=== PATIENT | male | born 1945 | race Caucasian/White ===

== ENCOUNTER 2017-01-10 09:18 | Outpatient (CLI) | payer MEDICARE, OTHER | END 2017-01-10 09:19 | disposition home or self-care (01) | DX: I10 Essential (primary) hypertension (principal); E11.9 Type 2 diabetes mellitus without complications; E78.5 Hyperlipidemia, unspecified ==

== ENCOUNTER 2017-02-20 09:56 | Outpatient (CLI) | payer MEDICARE, OTHER | END 2017-02-20 09:57 | disposition home or self-care (01) | DX: G47.33 Obstructive sleep apnea (adult) (pediatric) (principal) | CPT/HCPCS: 99214; G0463 ==

== ENCOUNTER 2017-04-30 09:30 | Outpatient (CLI) | payer MEDICARE, OTHER ==
[2017-04-30 18:14] LABS: BASOPHILS % (AUTO) 0.7 %; EOSINOPHILS # (AUTO) 0.3 10^3/uL (0.0-0.7); EOSINOPHILS % (AUTO) 6.5 %; HCT - HEMATOCRIT 39.6 % (42.0-52.0); HGB - HEMOGLOBIN 13.4 g/dL (14.0-18.0); MEAN CORPUSCULAR HEMOGLOBIN 31.1 pg (27.0-31.0); MEAN CORPUSCULAR HGB CONC 33.9 g/dL (32.0-36.0); MEAN CORPUSCULAR VOLUME 91.6 fL (80.0-94.0); MEAN PLATELET VOLUME 8.4 fL (7.4-11.4); MONOCYTES # (AUTO) 0.4 10^3/uL (0.0-1.0); MONOCYTES % (AUTO) 8.2 %; NEUTROPHILS # (AUTO) 2.4 10^3/uL (1.5-6.6); NEUTROPHILS % (AUTO) 46.6 %; RED BLOOD COUNT 4.32 10^6/uL (4.70-6.10); RED CELL DISTRIBUTION WIDTH 13.3 % (12.0-15.0); UNCORRECTED WHITE BLOOD COUNT 5.2 x10^3/uL; WHITE BLOOD COUNT 5.2 x10^3/uL (4.8-10.8)
[2017-04-30 18:36] LABS: HEMOGLOBIN A1C 0.64 g/dL
[2017-04-30 18:42] LABS: ALBUMIN/GLOBULIN RATIO 1.4 (1.0-2.2); BILIRUBIN,TOTAL 0.5 mg/dL (0.2-1.0); BUN - BLOOD UREA NITROGEN 22 mg/dL (6-20); CALCIUM 9.3 mg/dL (8.5-10.3); CARBON DIOXIDE - CO2 25 mmol/L (21-32); CHLORIDE 105 mmol/L (101-111); CHOL/HDL RATIO 2.8 (<5.0); CHOLESTEROL 107 mg/dL; CREATININE 0.9 mg/dL (0.6-1.2); GFR - MDRD 83 (>89); GLUCOSE 134 mg/dL (70-100); HDL CHOLESTEROL 38 mg/dL; IRON 77 ug/dL (45-182); POTASSIUM 4.2 mmol/L (3.5-5.0); SODIUM 139 mmol/L (135-145); TOTAL IRON BINDING CAPACITY 386 ug/dL (250-450); TOTAL PROTEIN 7.3 g/dL (6.7-8.2); TRANSFERRIN 276 mg/dL (180-329)
[2017-04-30 19:04] LABS: LDL/HDL RATIO 1.2 (<3.6); TRIGLYCERIDES 109 mg/dL; VLDL CHOLESTEROL 22 mg/dL
== END 2017-04-30 09:31 | disposition home or self-care (01) ==
LOC: LAB.F 09:30
PROVIDERS: ATTEND Internal Medicine
DX: E11.9 Type 2 diabetes mellitus without complications (principal); I10 Essential (primary) hypertension; E78.5 Hyperlipidemia, unspecified; D64.9 Anemia, unspecified
CPT/HCPCS: 36415; 80048; 80053; 80061; 82728; 83036; 83540; 84466; 85025

== ENCOUNTER 2017-05-31 10:01 | Outpatient (CLI) | payer MEDICARE, OTHER ==
--- NOTE | 2017-05-31 16:20 | XRAY Report ---
THREE-VIEW LUMBAR SPINE: 05/31/2017 CLINICAL INDICATION: Back pain. FINDINGS: AP, lateral, coned-down views of the lumbar spine demonstrate moderate degenerative disk a nd facet disease. There is no evidence of compression fracture or subluxation. IMPRESSION: MODERATE DEGENERATIVE CHANGES. JOB #: [id number] EXT JOB #:[id number]
--- NOTE | 2017-05-31 16:21 | XRAY Report ---
FRONTAL PELVIS: 05/31/2017 CLINICAL INDICATION: Pain, rheumatoid factor positive. FINDINGS: Frontal view of the hips and pelvis demonstrate mild right and moderate left hip osteoarth ritis. There is no evidence of acute fracture or dislocation. The visualized bowel gas pattern is n ormal. IMPRESSION: MODERATE LEFT AND MILD RIGHT HIP OSTEOARTHRITIS. JOB #: [id number] EXT JOB #:[id number]
--- NOTE | 2017-05-31 16:22 | XRAY Report ---
TWO-VIEW BILATERAL KNEES: 05/31/2017 CLINICAL INDICATION: Pain, rheumatoid factor positive. FINDINGS: Frontal and lateral views of the bilateral knees demonstrate mild bilateral osteoarthritis . There is no evidence of acute fracture or dislocation. No effusion is present. IMPRESSION: MILD BILATERAL OSTEOARTHRITIS. JOB #: [id number] EXT JOB #:[id number]
== END 2017-05-31 10:02 | disposition home or self-care (01) ==
LOC: LAB 10:01
PROVIDERS: ATTEND Nurse Practitioner
DX: M16.0 Bilateral primary osteoarthritis of hip (principal); M17.0 Bilateral primary osteoarthritis of knee; M51.36 Other intervertebral disc degeneration, lumbar region
CPT/HCPCS: 36415; 72100; 72170; 73565; 82550

== ENCOUNTER 2017-12-06 09:06 | Outpatient (CLI) | payer MEDICARE, OTHER ==
[2017-12-06 18:20] LABS: HEMOGLOBIN A1C 0.67 g/dL; HEMOGLOBIN A1C % 6.2 % (4.6-6.2)
[2017-12-06 18:24] LABS: CHOL/HDL RATIO 3.9 (<5.0); CHOLESTEROL 194 mg/dL; CK- CREATINE KINASE 340 IU/L (22-269); HDL CHOLESTEROL 50 mg/dL; LDL CHOLESTEROL,CALCULATED 96 mg/dL; LDL/HDL RATIO 1.9 (<3.6); VLDL CHOLESTEROL 48 mg/dL
== END 2017-12-06 09:07 | disposition home or self-care (01) ==
LOC: LAB.F 09:06
PROVIDERS: ATTEND Physician Assistant Medical
DX: E78.00 Pure hypercholesterolemia, unspecified (principal); E11.9 Type 2 diabetes mellitus without complications; Z88.9 Allergy status to unspecified drugs, medicaments and biological substances
CPT/HCPCS: 36415; 80061; 82550; 83036; 83721

== ENCOUNTER 2018-03-06 10:43 | Outpatient (CLI) | payer MEDICARE, OTHER | END 2018-03-06 10:44 | disposition home or self-care (01) | LOC: SC 10:43 | PROVIDERS: ATTEND Nurse Practitioner Family | DX: G47.33 Obstructive sleep apnea (adult) (pediatric) (principal) | CPT/HCPCS: 99213; G0463; 99212 ==

== ENCOUNTER 2019-03-10 13:19 | Outpatient (CLI) | payer MEDICARE, OTHER | END 2019-03-10 13:20 | disposition home or self-care (01) | LOC: SC 13:19 | PROVIDERS: ATTEND Nurse Practitioner Family | DX: G47.33 Obstructive sleep apnea (adult) (pediatric) (principal) | CPT/HCPCS: 99214; G0463; 99212 ==

== ENCOUNTER 2019-07-10 08:34 | Outpatient (CLI) | payer MEDICARE, OTHER ==
[2019-07-10 17:38] LABS: BUN - BLOOD UREA NITROGEN 22 mg/dL (6-20); CALCIUM 9.3 mg/dL (8.5-10.3); CARBON DIOXIDE - CO2 26 mmol/L (21-32); CHLORIDE 101 mmol/L (101-111); CHOL/HDL RATIO 2.5 (<5.0); CHOLESTEROL 130 mg/dL; GFR - MDRD 73 (>89); GLUCOSE 119 mg/dL (70-100); HDL CHOLESTEROL 53 mg/dL; LDL CHOLESTEROL,CALCULATED 53 mg/dL; SODIUM 141 mmol/L (135-145); VLDL CHOLESTEROL 24 mg/dL
[2019-07-10 17:42] LABS: HB2 TOTAL 13.4 g/dL; HEMOGLOBIN A1C 0.52 g/dL; HEMOGLOBIN A1C % 5.7 % (4.6-6.2)
[2019-07-10 17:56] LABS: CREATININE,URINE 107.4 mg/dL; MICROALBUM/CREATININE RATIO,UR 87.5 ug/mg (<30.0); MICROALBUMIN,URINE 9.4 mg/dL (0-300.0)
[2019-07-11 09:13] LABS: HEPATITIS C ANTIBODY NON-REACTIVE (NON-REACTIVE)
== END 2019-07-10 08:35 | disposition home or self-care (01) ==
LOC: LAB.S 08:34
PROVIDERS: ATTEND Internal Medicine
DX: M17.9 Osteoarthritis of knee, unspecified (principal); E11.9 Type 2 diabetes mellitus without complications; K21.9 Gastro-esophageal reflux disease without esophagitis; E78.5 Hyperlipidemia, unspecified; I10 Essential (primary) hypertension; E66.9 Obesity, unspecified; G47.33 Obstructive sleep apnea (adult) (pediatric); R80.9 Proteinuria, unspecified; L29.9 Pruritus, unspecified; Z11.59 Encounter for screening for other viral diseases
CPT/HCPCS: 36415; 80048; 80061; 82043; 82570; 83036; 83721; 86803

== ENCOUNTER 2019-08-22 09:26 | Outpatient (CLI) | payer MEDICARE, OTHER ==
[2019-08-22 18:00] LABS: CALCIUM 9.5 mg/dL (8.5-10.3)
== END 2019-08-22 09:27 | disposition home or self-care (01) ==
LOC: LAB.S 09:26
PROVIDERS: ATTEND Nurse Practitioner
DX: E11.42 Type 2 diabetes mellitus with diabetic polyneuropathy (principal)
CPT/HCPCS: 36415; 80048

== ENCOUNTER 2019-12-18 10:45 | Outpatient (CLI) | payer MEDICARE, OTHER ==
[2019-12-18 17:32] LABS: HB2 TOTAL 14.2 g/dL; HEMOGLOBIN A1C 0.64 g/dL; HEMOGLOBIN A1C % 6.3 % (4.6-6.2)
== END 2019-12-18 10:46 | disposition home or self-care (01) ==
LOC: LAB.S 10:45
PROVIDERS: ATTEND Internal Medicine
DX: M17.9 Osteoarthritis of knee, unspecified (principal); E11.9 Type 2 diabetes mellitus without complications; K21.9 Gastro-esophageal reflux disease without esophagitis; E78.5 Hyperlipidemia, unspecified; I10 Essential (primary) hypertension; E66.9 Obesity, unspecified; G47.33 Obstructive sleep apnea (adult) (pediatric); R80.9 Proteinuria, unspecified; L29.9 Pruritus, unspecified; K42.9 Umbilical hernia without obstruction or gangrene
CPT/HCPCS: 36415; 83036

== ENCOUNTER 2020-03-15 12:11 | Outpatient (CLI) | payer MEDICARE, OTHER ==
--- NOTE | 2020-03-15 12:13 | SLEEP CARE CONSULTATION ---
Information from patient questionnaire entered by Shanna Hardy. I have reviewed and concur with the information entered by Shanna Hardy. This document represents the service I personally performed and the decisions made by me, Juany Beckman, RN, MSN, FLEET ADMINISTRATOR. History of Present Illness Service Date and Time: 03/15/2020 1211 Previous diagnosis: Mild, Obstructive Sleep Apnea-Hypopnea Syndrome AHI: 12.3 (in 2014) Reason for follow up: annual (last seen 2019) Equipment type: CPAP Equipment obtained from: [facility] (getting supplies as needed / his CPAP is over 5 years old and would to update) Mask style: Full face (blue gel - Thuy?) Backup mask available: Yes (old mask ) Last cushion change: 2 weeks CPAP Compliance Data - Data Reviewed with Patient Average duration of nightly device use: 8.5 Compliance rate %: 99.4 (180 days) Current pressure setting (cmH2O): 7 Humidity settin Average residual AHI: 1.3 Average large leak: 44 min 15 sec Subjective Patient concerns: reports: other (mask leaks observed were when there was an older mask cushion. Patient is changing more frequently since then. ). denies: aerophagia, mask discomfort, air blowing in eyes, mask leak noise, condensation in mask/hose, nasal congestion, dry mouth, nose, throat, epistaxis Observed to snore while using device: No Current pressure setting perceived as: comfortable On therapy, patient: reports: sleeping better, awakening more refreshed, being more awake and alert during the day, more rested overall. denies: drowsiness while driving Initial [place] Sleepiness Scale score: 16 (in 2013) Current [place] Sleepiness Scale score: 5 Allergies and Home Medications Home medication list reviewed: No (glymperide stopped ) Review of Systems Review of systems same as previous: Yes Physical Exam Height: 5 ft 6 in Weight: 194 lb Weight change since last visit: lost 20 pounds in past year or so with increase in exercise Body Mass Index: 31.3 BMI Classification: Obese Impression and Plan 1. Obstructive Sleep Apnea-Hypopnea Syndrome, mild, with good treatment compliance and good apnea control. On CPAP therapy, the patient has better sleep quality and is more rested overall. He is pleased with benefit of CPAP therapy. His [place] Sleepiness scale has gone down from a 15 to 5. Mask leaks have started to increase again so advised to tighten his mask slightly until the cushion can be replaced. His CPAP is now over 5 years old and patient would like to update. Questions answered re new devices. Patient would like to stay with Respironics brand. I explained compliance follow up process once he receives his new CPAP. Patient has lost weight with increased exercise. Currently patients BMI is 31.3 obesity class . Obesity increases the risk of apnea, CPAP pressure requirements and overall health risks especially cardiovascular and diabetes. Thus patient is advised to continue to lose weight. The patient is not sure he will lose more weight. He follows a diabetic diet. The patient's CPAP pressure range should accommodate some weight loss. Symptoms to report for additional pressure adjustment discussed. Patient's apnea severity and rationale for treatment to reduce apnea, improve sleep quality and reduce cardiovascular and cerebrovascular events was reviewed. I also reviewed the benefit of consistent device use of CPAP for diabetes * Continue CPAP pressure at 7 cmH2O * update CPAP - Respironics preferred * Adjust mask headgear. * Notify me if snoring with mask or feeling that the pressure is too much or too little * Attempt to lose weight * Call this office if any problems using CPAP * Return for follow up in 1 month after new CPAP , or sooner if concerns arise Visit Type: Telehealth Video (to reduce the risk of Covid 19 exposure) Patient Location: Home Location of Provider: Home Patient agrees and consents to this telehealth visit type: Yes Patient agrees to have their insurance billed: Yes Time Spent with Patient (minutes): 20 Provider Statement: I spent 100% of the Telehealth Video Call with the patient with greater than 50% spent counseling the patient and coordination of care.
== END 2020-03-15 12:12 | disposition home or self-care (01) ==
LOC: SC 12:11
PROVIDERS: ATTEND Nurse Practitioner Family
DX: G47.33 Obstructive sleep apnea (adult) (pediatric) (principal); E66.9 Obesity, unspecified; Z68.31 Body mass index [BMI] 31.0-31.9, adult

== ENCOUNTER 2020-07-06 07:25 | Outpatient (CLI) | payer MEDICARE, OTHER ==
[2020-07-06 15:29] LABS: BUN - BLOOD UREA NITROGEN 24 mg/dL (6-20); CALCIUM 9.5 mg/dL (8.5-10.3); CARBON DIOXIDE - CO2 27 mmol/L (21-32); CHLORIDE 102 mmol/L (101-111); CHOL/HDL RATIO 1.9 (<5.0); CHOLESTEROL 117 mg/dL; GLUCOSE 116 mg/dL (70-100); HDL CHOLESTEROL 62 mg/dL; LDL CHOLESTEROL,CALCULATED 28 mg/dL; LDL/HDL RATIO 0.5 (<3.6); SODIUM 138 mmol/L (135-145); VLDL CHOLESTEROL 27 mg/dL
[2020-07-06 15:36] LABS: CREATININE,URINE 96.2 mg/dL; MICROALBUM/CREATININE RATIO,UR 32.2 ug/mg (<30.0); MICROALBUMIN,URINE 3.1 mg/dL (0-300.0)
[2020-07-06 21:40] LABS: HEMOGLOBIN A1c% 6.4 % (4.27-6.07)
== END 2020-07-06 07:26 | disposition home or self-care (01) ==
LOC: LAB.S 07:25
PROVIDERS: ATTEND Internal Medicine
DX: E11.9 Type 2 diabetes mellitus without complications (principal); E78.5 Hyperlipidemia, unspecified; I10 Essential (primary) hypertension; M17.9 Osteoarthritis of knee, unspecified; K21.9 Gastro-esophageal reflux disease without esophagitis; E66.9 Obesity, unspecified; G47.33 Obstructive sleep apnea (adult) (pediatric); R80.9 Proteinuria, unspecified; L29.9 Pruritus, unspecified; K42.9 Umbilical hernia without obstruction or gangrene
CPT/HCPCS: 36415; 80048; 80061; 82043; 82570; 83036; 83721

== ENCOUNTER 2020-11-23 12:40 | Outpatient (CLI) | payer MEDICARE, OTHER ==
[2020-11-23 15:39] LABS: BILIRUBIN,URINE NEGATIVE (NEGATIVE); GLUCOSE, URINE (UA) >=1000 mg/dL (NEGATIVE); KETONES,URINE (UA) NEGATIVE (NEGATIVE); LEUKOCYTE ESTERASE, URINE NEGATIVE (NEGATIVE); NITRITE,URINE NEGATIVE (NEGATIVE); OCCULT BLOOD,URINE NEGATIVE (NEGATIVE); PROTEIN,URINE NEGATIVE (NEGATIVE); UROBILINOGEN,URINE 0.2 (NORMAL) E.U./dL (NORMAL)
[2020-11-23 15:42] LABS: CLARITY,URINE CLEAR (CLEAR)
== END 2020-11-23 12:41 | disposition home or self-care (01) ==
LOC: LAB.S 12:40
PROVIDERS: ATTEND Internal Medicine
DX: R35.0 Frequency of micturition (principal)
CPT/HCPCS: 81001; 81003; 87086

== ENCOUNTER 2020-12-15 08:00 | Outpatient (CLI) | payer MEDICARE, OTHER ==
--- NOTE | 2020-12-15 13:01 | XRAY Report ---
PROCEDURE: Ankle 3 View LT INDICATIONS: LEFT ANKLE SPRAIN TECHNIQUE: 3 views of the ankle were acquired. COMPARISON: None available related to the ankle on the left. FINDINGS: Bones: No fractures or dislocations. Ankle mortise is normally aligned. No suspicious bony lesions . Soft tissues: No tibiotalar joint effusion. Achilles tendon appears normal. IMPRESSION: Prior trauma has occurred and prior fracture fixation has been performed but imaging fro m the prior trauma is not available for review. The current study shows a healed distal fibular fract ure, moderately irregular in its margination and also a axial medial malleolar fracture fixation scre w. No acute disease. Moderate-sized plantar fascial insertion spur seen on the lateral view. No defin ite superimposed acute trauma. Reviewed by: Jermaine Syed MD on 12/15/2020 12:59 PM PST Approved by: Jermaine Syed MD on 12/15/2020 12:59 PM [facility] Station ID: [id number]
== END 2020-12-15 23:59 | disposition home or self-care (01) ==
LOC: DI.S 08:00
PROVIDERS: ATTEND Emergency Medicine
DX: S93.412A Sprain of calcaneofibular ligament of left ankle, initial encounter (principal)

== ENCOUNTER 2020-12-25 11:39 | Outpatient (CLI) | payer MEDICARE, OTHER ==
[2020-12-25 15:38] LABS: CREATININE,URINE 85.9 mg/dL; MICROALBUM/CREATININE RATIO,UR 399.3 ug/mg (<30.0); MICROALBUMIN,URINE 34.3 mg/dL (0-300.0)
[2020-12-25 18:25] LABS: ESTIMATED AVERAGE GLUCOSE 143 mg/dL (70-100); HEMOGLOBIN A1c% 6.6 % (4.27-6.07)
== END 2020-12-25 11:40 | disposition home or self-care (01) ==
LOC: LAB.S 11:39
PROVIDERS: ATTEND Internal Medicine
DX: E11.9 Type 2 diabetes mellitus without complications (principal)
CPT/HCPCS: 36415; 82043; 82570; 83036

== ENCOUNTER 2021-01-13 08:07 | Outpatient (CLI) | payer MEDICARE, OTHER ==
[2021-01-13 15:55] LABS: BASOPHILS % (AUTO) 0.6 %; EOSINOPHILS # (AUTO) 0.3 10^3/uL (0.0-0.7); EOSINOPHILS % (AUTO) 6.3 %; HCT - HEMATOCRIT 41.4 % (42.0-52.0); HGB - HEMOGLOBIN 13.3 g/dL (14.0-18.0); LYMPHOCYTES # (AUTO) 1.9 10^3/uL (1.5-3.5); LYMPHOCYTES % (AUTO) 36.8 %; MEAN CORPUSCULAR HEMOGLOBIN 30.4 pg (27.0-31.0); MEAN CORPUSCULAR HGB CONC 32.1 g/dL (32.0-36.0); MEAN CORPUSCULAR VOLUME 94.5 fL (80.0-94.0); MEAN PLATELET VOLUME 9.8 fL (7.4-11.4); MONOCYTES # (AUTO) 0.5 10^3/uL (0.0-1.0); MONOCYTES % (AUTO) 10.2 %; NEUTROPHILS # (AUTO) 2.4 10^3/uL (1.5-6.6); NEUTROPHILS % (AUTO) 45.9 %; PLT - PLATELET COUNT 215 10^3/uL (130-450); RED BLOOD COUNT 4.38 10^6/uL (4.70-6.10); RED CELL DISTRIBUTION WIDTH 13.6 % (12.0-15.0); WHITE BLOOD COUNT 5.1 x10^3/uL (4.8-10.8)
[2021-01-13 16:14] LABS: ALBUMIN 4.3 g/dL (3.2-5.5); CALCIUM 9.4 mg/dL (8.5-10.3); CREATININE 0.9 mg/dL (0.6-1.2); PHOSPHORUS 3.3 mg/dL (2.5-4.6)
[2021-01-13 16:21] LABS: CREATININE,URINE 90.7 mg/dL; MICROALBUM/CREATININE RATIO,UR 239.3 ug/mg (<30.0); MICROALBUMIN,URINE 21.7 mg/dL (0-300.0)
== END 2021-01-13 08:08 | disposition home or self-care (01) ==
LOC: LAB.S 08:07
PROVIDERS: ATTEND Internal Medicine
DX: E11.21 Type 2 diabetes mellitus with diabetic nephropathy (principal)
CPT/HCPCS: 36415; 80069; 82043; 82570; 85025

== ENCOUNTER 2021-03-16 07:33 | Outpatient (CLI) | payer MEDICARE, OTHER ==
[2021-03-16 15:15] LABS: HCT - HEMATOCRIT 42.8 % (42.0-52.0); HGB - HEMOGLOBIN 13.8 g/dL (14.0-18.0); MEAN CORPUSCULAR HEMOGLOBIN 30.6 pg (27.0-31.0); MEAN CORPUSCULAR HGB CONC 32.2 g/dL (32.0-36.0); MEAN CORPUSCULAR VOLUME 94.9 fL (80.0-94.0); MEAN PLATELET VOLUME 9.7 fL (7.4-11.4); RED BLOOD COUNT 4.51 10^6/uL (4.70-6.10); RED CELL DISTRIBUTION WIDTH 13.6 % (12.0-15.0); WHITE BLOOD COUNT 5.1 x10^3/uL (4.8-10.8)
[2021-03-16 15:28] LABS: ALBUMIN 4.2 g/dL (3.2-5.5); CALCIUM 9.4 mg/dL (8.5-10.3); CREATININE 0.9 mg/dL (0.6-1.2); PHOSPHORUS 3.3 mg/dL (2.5-4.6); POTASSIUM 4.6 mmol/L (3.5-5.0); URIC ACID 5.1 mg/dL (2.6-7.2)
[2021-03-16 15:37] LABS: CREATININE,URINE 101.9 mg/dL; MICROALBUM/CREATININE RATIO,UR 165.8 ug/mg (<30.0); MICROALBUMIN,URINE 16.9 mg/dL (0-300.0)
== END 2021-03-16 07:34 | disposition home or self-care (01) ==
LOC: LAB.S 07:33
PROVIDERS: ATTEND Internal Medicine Nephrology
DX: I12.9 Hypertensive chronic kidney disease with stage 1 through stage 4 chronic kidney disease, or unspecified chronic kidney disease (principal); E11.22 Type 2 diabetes mellitus with diabetic chronic kidney disease; N18.1 Chronic kidney disease, stage 1; R80.9 Proteinuria, unspecified
CPT/HCPCS: 36415; 80069; 81599; 82043; 82570; 83883; 84550; 85027; 86334; 86335

== ENCOUNTER 2021-07-05 12:56 | Outpatient (CLI) | payer MEDICARE, OTHER ==
[2021-07-05 20:02] LABS: CREATININE,URINE 75.5 mg/dL; MICROALBUM/CREATININE RATIO,UR 135.1 ug/mg (<30.0); MICROALBUMIN,URINE 10.2 mg/dL (0-300.0)
[2021-07-05 20:07] LABS: BUN - BLOOD UREA NITROGEN 22 mg/dL (6-20); CALCIUM 9.3 mg/dL (8.5-10.3); CARBON DIOXIDE - CO2 25 mmol/L (21-32); CHLORIDE 102 mmol/L (101-111); CHOL/HDL RATIO 2.1 (<5.0); CHOLESTEROL 116 mg/dL; GFR - MDRD 73 (>89); GLUCOSE 123 mg/dL (70-100); HDL CHOLESTEROL 55 mg/dL; LDL CHOLESTEROL,CALCULATED 27 mg/dL; LDL/HDL RATIO 0.5 (<3.6); POTASSIUM 4.4 mmol/L (3.5-5.0); SODIUM 138 mmol/L (135-145); TRIGLYCERIDES 168 mg/dL; VLDL CHOLESTEROL 34 mg/dL
[2021-07-05 20:51] LABS: ESTIMATED AVERAGE GLUCOSE 134 mg/dL (70-100); HEMOGLOBIN A1c% 6.3 % (4.27-6.07)
== END 2021-07-05 12:57 | disposition home or self-care (01) ==
LOC: LAB.S 12:56
PROVIDERS: ATTEND Internal Medicine
DX: J45.909 Unspecified asthma, uncomplicated (principal); E11.21 Type 2 diabetes mellitus with diabetic nephropathy; E11.40 Type 2 diabetes mellitus with diabetic neuropathy, unspecified; K21.9 Gastro-esophageal reflux disease without esophagitis; E78.5 Hyperlipidemia, unspecified; I10 Essential (primary) hypertension; E66.9 Obesity, unspecified; G47.33 Obstructive sleep apnea (adult) (pediatric); L29.9 Pruritus, unspecified
CPT/HCPCS: 36415; 80048; 80061; 82043; 82570; 83036; 83721

== ENCOUNTER 2021-12-30 10:42 | Outpatient (CLI) | payer MEDICARE, OTHER ==
[2021-12-30 16:28] LABS: CREATININE,URINE 79.2 mg/dL; MICROALBUM/CREATININE RATIO,UR 372.5 ug/mg (<30.0); MICROALBUMIN,URINE 29.5 mg/dL (0-300.0)
[2021-12-30 20:32] LABS: ESTIMATED AVERAGE GLUCOSE 126 mg/dL (70-100)
[2021-12-30 20:41] LABS: CALCIUM 9.6 mg/dL (8.5-10.3); CREATININE 0.9 mg/dL (0.6-1.2); POTASSIUM 4.1 mmol/L (3.5-5.0)
== END 2021-12-30 10:43 | disposition home or self-care (01) ==
LOC: LAB.S 10:42
PROVIDERS: ATTEND Internal Medicine
DX: E11.9 Type 2 diabetes mellitus without complications (principal)
CPT/HCPCS: 36415; 80048; 82043; 82570; 83036

== ENCOUNTER 2022-01-24 10:56 | Outpatient (CLI) | payer MEDICARE, OTHER ==
--- NOTE | 2022-01-24 11:39 | SLEEP CARE CONSULTATION ---
Information from patient questionnaire entered by Geetha Cazares MA. I have reviewed and concur with the information entered by Geetha Cazares MA. This document represents the service I personally performed and the decisions made by , Becca Villar ARNP. History of Present Illness Service Date and Time: 01/24/2022 1056 Previous diagnosis: Mild, Obstructive Sleep Apnea-Hypopnea Syndrome AHI: 12.3 (in 2014) Reason for follow up: annual (LAST SEEN 02/2020, CECILIO,) Equipment type: CPAP Equipment obtained from: Other ([facility]; needs updated prescription) Mask style: Full face (blue gel - Thuy?) Backup mask available: Yes (old mask) Last cushion change: 3+ weeks HPI additional information: JUSTIN GARCIA was diagnosed to have mild, AHI 12.3, obstructive sleep apnea- hypopnea syndrome and returned today for CPAP therapy annual follow-up. CPAP Compliance Data - Data Reviewed with Patient Average duration of nightly device use: 8 HOURS 20 MINUTES Compliance rate %: 100 Current pressure setting (cmH2O): 7 Humidity settin Heated hose settin Average residual AHI: 2.7 Average large leak: 15 MINUTES 12 SECONDS Subjective Patient concerns: denies: aerophagia, mask discomfort, air blowing in eyes, mask leak noise, condensation in mask/hose, nasal congestion, dry mouth, nose, throat, epistaxis Observed to snore while using device: No Current pressure setting perceived as: comfortable On therapy, patient: reports: sleeping better, awakening more refreshed, being more awake and alert during the day, more rested overall. denies: drowsiness while driving Initial [place] Sleepiness Scale score: 16 (in 2013) Current [place] Sleepiness Scale score: 16 (12/2021) Allergies and Home Medications Home medication list reviewed: Yes (see list scanned in) Review of Systems Review of systems same as previous: Yes (JEFF (18 MONTHS)) Physical Exam Vital signs obtained and entered by: ALEJA EATON Blood Pressure: 130/72 (PULSE 80, RESP 18, RIGHT) Cuff size: wrist Heart Rate: 72 O2 Saturation: 97 (PAPER) Height: 5 ft 6 in Weight: 208 lb Weight change since last visit: 14 lb gain Body Mass Index: 33.5 BMI Classification: Obese Impression and Plan 1. Obstructive Sleep Apnea-Hypopnea Syndrome, mild, with excellent treatment compliance and good apnea control. On CPAP therapy, the patient has better sleep quality and is more rested overall. Patient has a Dreamstation that he obtained in 2019. Patient has already registered their device for the recall. Patient denies any black particles seen in machine or hoses, any unusual odors coming from device. Patient has not experienced any physical symptoms such as upper airway irritation, headache, skin or eye irritation, asthma, nausea/vomiting, difficulty breathing or chest pain. If patient is not able to sleep due to waking up choking, gasping for air or other respiratory distress that they may decide to continue using it until it is either replaced or repaired. Patient is going to monitor his device for any debris or chemical odors. Patient voiced understanding and agreement with plan. Patient's apnea severity and rationale for treatment to reduce apnea, improve sleep quality and reduce cardiovascular and cerebrovascular events was reviewed. I also reviewed the benefit of consistent device use of CPAP for hypertension. 2. Obesity, unspecified. Patient has gained weight. Currently patients BMI is 33.5. Obesity increases the risk of apnea, CPAP pressure requirements and overall health risks especially cardiovascular and diabetes. Thus patient is advised to lose weight. Weight loss can be done with reducing portion size, reducing refined foods and balancing content with vegetables, fruit and whole grain foods. In addition, patient encouraged to get regular exercise. * Continue CPAP pressure at 7 cmH2O * Update supplies * Notify me if snoring with mask or feeling that the pressure is too much or too little * Attempt to lose weight * Call this office if any problems using CPAP * Return for follow up in 1 year, or sooner if concerns arise Counseling Topics: Spare mask, Weight loss health impact Visit Type: In Office Time Spent with Patient (minutes): 21 Provider Statement: I spent 100% of the Face to Face Visit with the patient with greater than 50% spent counseling the patient and coordination of care.
[2022-01-24 11:40] VITALS: BP 130/72
== END 2022-01-24 10:57 | disposition home or self-care (01) ==
LOC: SC 10:56
PROVIDERS: ATTEND Nurse Practitioner Family
DX: G47.33 Obstructive sleep apnea (adult) (pediatric) (principal); E66.9 Obesity, unspecified; Z68.33 Body mass index [BMI] 33.0-33.9, adult
CPT/HCPCS: 99213; G0463; 99212

== ENCOUNTER 2022-07-07 11:08 | Outpatient (CLI) | payer MEDICARE, OTHER ==
[2022-07-07 15:05] LABS: MICROALBUM/CREATININE RATIO,UR 339.2 ug/mg (<30.0); MICROALBUMIN,URINE 26.8 mg/dL (0-300.0)
[2022-07-07 15:26] LABS: BUN - BLOOD UREA NITROGEN 20 mg/dL (6-20); CALCIUM 9.7 mg/dL (8.5-10.3); CARBON DIOXIDE - CO2 28 mmol/L (21-32); CHLORIDE 101 mmol/L (101-111); CHOL/HDL RATIO 2.6 (<5.0); CHOLESTEROL 138 mg/dL; GFR - MDRD 73 (>89); GLUCOSE 151 mg/dL (70-100); HDL CHOLESTEROL 54 mg/dL; LDL CHOLESTEROL,CALCULATED 44 mg/dL; LDL/HDL RATIO 0.8 (<3.6); POTASSIUM 4.5 mmol/L (3.5-5.0); SODIUM 136 mmol/L (135-145); TRIGLYCERIDES 201 mg/dL; VLDL CHOLESTEROL 40 mg/dL
[2022-07-07 20:13] LABS: ESTIMATED AVERAGE GLUCOSE 131 mg/dL (70-100); HEMOGLOBIN A1c% 6.2 % (4.27-6.07)
== END 2022-07-07 11:09 | disposition home or self-care (01) ==
LOC: LAB.S 11:08
PROVIDERS: ATTEND Internal Medicine
DX: I10 Essential (primary) hypertension (principal); E11.21 Type 2 diabetes mellitus with diabetic nephropathy; E78.5 Hyperlipidemia, unspecified
CPT/HCPCS: 36415; 80048; 80061; 82043; 82570; 83036; 83721

== ENCOUNTER 2022-07-27 15:02 | Outpatient (CLI) | payer MEDICARE, OTHER ==
--- NOTE | 2022-07-27 16:16 | XRAY Report ---
PROCEDURE: Knee 2 View BILAT INDICATIONS: BILAT KNEE BILAT HIP PAIN TECHNIQUE: 2 views of the bilateral knee(s) were acquired. COMPARISON: X-ray knees and 317 FINDINGS: Bones: No fractures or dislocations. No suspicious bony lesions. There is severe right medial and moderate left medial compartment narrowing progressive compared to prior exam. Subchondral sclerosis is noted on the right. There is bilateral mild to moderate lateral compartment narrowing relatively s table. Moderate bilateral patellofemoral compartment narrowing is present. Overall, small paratrachea l or osteophytes are present. No erosions. Soft tissues: No joint effusion. No suspicious soft tissue calcifications. IMPRESSION: Tricompartmental arthritic change most severe on the right, progressive compared to prio r exam. Reviewed by: Vee Soto MD on 07/27/2022 4:15 PM PDT Approved by: Vee Soto MD on 07/27/2022 4:15 PM PDT Station ID: [id number]
--- NOTE | 2022-07-27 16:17 | XRAY Report ---
PROCEDURE: Pelvis 1 View INDICATIONS: BILAT KNEE BILAT HIP PAIN TECHNIQUE: 1 view(s) of the pelvis acquired. COMPARISON: X-ray pelvis 05/31/2017 FINDINGS: Bones: No fractures or dislocations. No suspicious bony lesions. There is severe left and moderate right arthritic narrowing markedly progressive compared to prior exam. Subchondral sclerosis is also noted on the left new compared to prior exam. No definitive erosions. Lower lumbar degenerative friend ges are present. Soft tissues: Visualized bowel gas pattern is normal. No suspicious soft tissue calcifications. IMPRESSION: Progression of arthritic change at the hip joints, left greater than right as above. Reviewed by: Vee Soto MD on 07/27/2022 4:16 PM PDT Approved by: Vee Soto MD on 07/27/2022 4:16 PM PDT Station ID: [id number]
== END 2022-07-27 15:03 | disposition home or self-care (01) ==
LOC: DI 15:02
PROVIDERS: ATTEND Internal Medicine Rheumatology
DX: M17.0 Bilateral primary osteoarthritis of knee (principal); M16.0 Bilateral primary osteoarthritis of hip

== ENCOUNTER 2022-11-03 11:19 | Outpatient (CLI) | payer MEDICARE, OTHER ==
[2022-11-03 14:56] LABS: BASOPHILS # (AUTO) 0.1 10^3/uL (0.0-0.1); BASOPHILS % (AUTO) 0.7 %; EOSINOPHILS # (AUTO) 0.2 10^3/uL (0.0-0.7); EOSINOPHILS % (AUTO) 3.4 %; HCT - HEMATOCRIT 43.9 % (42.0-52.0); HGB - HEMOGLOBIN 13.8 g/dL (14.0-18.0); LYMPHOCYTES # (AUTO) 2.1 10^3/uL (1.5-3.5); LYMPHOCYTES % (AUTO) 30.4 %; MEAN CORPUSCULAR HEMOGLOBIN 28.9 pg (27.0-31.0); MEAN CORPUSCULAR HGB CONC 31.4 g/dL (32.0-36.0); MEAN PLATELET VOLUME 9.8 fL (7.4-11.4); MONOCYTES # (AUTO) 0.6 10^3/uL (0.0-1.0); MONOCYTES % (AUTO) 8.1 %; NEUTROPHILS # (AUTO) 3.9 10^3/uL (1.5-6.6); NEUTROPHILS % (AUTO) 57.3 %; PLT - PLATELET COUNT 242 10^3/uL (130-450); RED BLOOD COUNT 4.77 10^6/uL (4.70-6.10); RED CELL DISTRIBUTION WIDTH 15.4 % (12.0-15.0); WHITE BLOOD COUNT 6.8 x10^3/uL (4.8-10.8)
[2022-11-03 15:14] LABS: PT - PROTHROMBIN TIME 11.3 secs (9.9-12.6)
[2022-11-03 15:25] LABS: BILIRUBIN,URINE NEGATIVE (NEGATIVE); CLARITY,URINE CLEAR (CLEAR); GLUCOSE, URINE (UA) >=1000 mg/dL (NEGATIVE); KETONES,URINE (UA) NEGATIVE (NEGATIVE); LEUKOCYTE ESTERASE, URINE NEGATIVE (NEGATIVE); NITRITE,URINE NEGATIVE (NEGATIVE); OCCULT BLOOD,URINE NEGATIVE (NEGATIVE); PROTEIN,URINE TRACE mg/dL (NEGATIVE); UROBILINOGEN,URINE 0.2 (NORMAL) E.U./dL (NORMAL)
[2022-11-03 15:29] LABS: CALCIUM 9.7 mg/dL (8.5-10.3); CREATININE 0.9 mg/dL (0.6-1.2); POTASSIUM 4.2 mmol/L (3.5-5.0)
[2022-11-03 15:35] LABS: WBC,URINE 0-3 /HPF (0-3)
[2022-11-03 15:36] LABS: BACTERIA,URINE None Seen /HPF (None Seen); RBC,URINE 0-5 /HPF (0-5); SQUAMOUS EPITHELIAL CELL,UR NONE SEEN (<= Few)
[2022-11-03 20:04] LABS: ESTIMATED AVERAGE GLUCOSE 123 mg/dL (70-100); HEMOGLOBIN A1c% 5.9 % (4.27-6.07)
== END 2022-11-03 11:20 | disposition home or self-care (01) ==
LOC: LAB.S 11:19
PROVIDERS: ATTEND Internal Medicine
DX: I10 Essential (primary) hypertension (principal); E11.9 Type 2 diabetes mellitus without complications; M17.9 Osteoarthritis of knee, unspecified; R80.9 Proteinuria, unspecified
CPT/HCPCS: 36415; 80048; 81001; 83036; 85025; 85610; 87086

== ENCOUNTER 2022-11-06 12:14 | Outpatient (CLI) | payer MEDICARE, OTHER | END 2022-11-06 12:15 | disposition home or self-care (01) | LOC: RT 12:14 | PROVIDERS: ATTEND Internal Medicine | DX: I10 Essential (primary) hypertension (principal) | CPT/HCPCS: 93005 ==

== ENCOUNTER 2022-12-20 08:35 | Outpatient (CLI) | payer MEDICARE, OTHER ==
[2022-12-20 15:30] LABS: CALCIUM 9.6 mg/dL (8.5-10.3); CREATININE 0.8 mg/dL (0.6-1.2)
[2022-12-20 15:44] LABS: CREATININE,URINE 101.3 mg/dL; MICROALBUM/CREATININE RATIO,UR 543.9 ug/mg (<30.0); MICROALBUMIN,URINE 55.1 mg/dL (0-300.0)
[2022-12-20 20:09] LABS: ESTIMATED AVERAGE GLUCOSE 128 mg/dL (70-100); HEMOGLOBIN A1c% 6.1 % (4.27-6.07)
== END 2022-12-20 08:36 | disposition home or self-care (01) ==
LOC: LAB.S 08:35
PROVIDERS: ATTEND Nurse Practitioner Family
DX: E11.21 Type 2 diabetes mellitus with diabetic nephropathy (principal)
CPT/HCPCS: 36415; 80048; 82043; 82570; 83036

== ENCOUNTER 2023-07-03 10:31 | Outpatient (CLI) | payer MEDICARE, OTHER ==
[2023-07-03 11:10] LABS: CALCIUM 10.3 mg/dL (8.5-10.3); CREATININE 0.7 mg/dL (0.6-1.3); POTASSIUM 4.3 mmol/L (3.5-4.5)
[2023-07-03 11:11] LABS: MICROALBUM/CREATININE RATIO,UR 658.1 ug/mg (<30.0); MICROALBUMIN,URINE 28.3 mg/dL
[2023-07-03 11:44] LABS: ESTIMATED AVERAGE GLUCOSE 108 mg/dL (70-100); HEMOGLOBIN A1c% 5.4 % (4.27-6.07)
== END 2023-07-03 10:32 | disposition home or self-care (01) ==
LOC: LAB 10:31
PROVIDERS: ATTEND Nurse Practitioner Family
DX: E11.21 Type 2 diabetes mellitus with diabetic nephropathy (principal)
CPT/HCPCS: 36415; 80048; 82043; 82570; 83036

== ENCOUNTER 2024-02-07 10:47 | Outpatient (CLI) | payer MEDICARE, OTHER ==
[2024-02-07 14:58] LABS: CHOL/HDL RATIO 2.2 (<5.0); CHOLESTEROL 119 mg/dL; HDL CHOLESTEROL 53 mg/dL; LDL CHOLESTEROL,CALCULATED 12 mg/dL; LDL/HDL RATIO 0.2 (<3.6); TRIGLYCERIDES 271 mg/dL (48-352); VLDL CHOLESTEROL 54 mg/dL
[2024-02-07 20:30] LABS: ESTIMATED AVERAGE GLUCOSE 123 mg/dL (70-100); HEMOGLOBIN A1c% 5.9 % (4.27-6.07)
== END 2024-02-07 10:48 | disposition home or self-care (01) ==
LOC: LAB.S 10:47
PROVIDERS: ATTEND Internal Medicine
DX: E11.9 Type 2 diabetes mellitus without complications (principal); E78.5 Hyperlipidemia, unspecified
CPT/HCPCS: 36415; 80061; 83036; 83721

== ENCOUNTER 2024-07-07 09:50 | Outpatient (CLI) | payer MEDICARE, OTHER ==
[2024-07-07 15:57] LABS: BUN - BLOOD UREA NITROGEN 13 mg/dL (6-20); CALCIUM 9.5 mg/dL (8.5-10.3); CARBON DIOXIDE - CO2 28 mmol/L (21-32); CHLORIDE 105 mmol/L (101-111); CHOLESTEROL 117 mg/dL; CREATININE 0.8 mg/dL (0.6-1.3); GFR - MDRD 94 (>89); GLUCOSE 66 mg/dL (74-104); HDL CHOLESTEROL 58 mg/dL; LDL CHOLESTEROL,CALCULATED 26 mg/dL; LDL/HDL RATIO 0.4 (<3.6); SODIUM 138 mmol/L (135-145); TRIGLYCERIDES 167 mg/dL; VLDL CHOLESTEROL 33 mg/dL
[2024-07-07 16:57] LABS: CREATININE,URINE 112.1 mg/dL; MICROALBUMIN,URINE 26.9 mg/dL
[2024-07-07 18:54] LABS: ESTIMATED AVERAGE GLUCOSE 126 mg/dL (70-100)
== END 2024-07-07 09:51 | disposition home or self-care (01) ==
LOC: LAB.S 09:50
PROVIDERS: ATTEND Internal Medicine
DX: I10 Essential (primary) hypertension (principal); E11.40 Type 2 diabetes mellitus with diabetic neuropathy, unspecified
CPT/HCPCS: 36415; 80048; 80061; 82043; 82570; 82607; 83036; 83721